=== PATIENT | female | born 1970 | race Caucasian/White ===

== ENCOUNTER 2021-05-07 10:05 | Day surgery (SDC) | payer BC, SELFPAY ==
[~2021-05-07] VITALS: Ht 167.6 cm; Wt 86.2 kg
[~2021-05-07 10:05] MED LIST: CEFAZOLIN SOD 1 GM in D5W 50 ML IV ONE
[2021-05-07 11:00] LABS: HCG,QUAL RESULT NEGATIVE (NEGATIVE)
[2021-05-07] MEDS ORDERED: LIDOCAINE 1% 10 MG/ML, 20 ML MDV ONE (12:00)
[2021-05-07] MEDS ORDERED: DESFLURANE 15 MIN GAS INH ONE (12:00)
[2021-05-07] MEDS ORDERED: PROPOFOL 200MG/ 20ML VIAL (DIPRIVAN) IV ONE (12:00)
[2021-05-07] MEDS ORDERED: ceFAZolin SODIUM 1 GM VIAL ONE (12:00)
[2021-05-07] MEDS ORDERED: ROCURONIUM BROMIDE 10 MG/ML (ZEMURON) ONE (12:00)
[2021-05-07] MEDS ORDERED: LR 1,000 ML IV.SOLN IV ONE (12:00)
[2021-05-07] MEDS ORDERED: MIDAZOLAM HCL 2 MG/2 ML VIAL (VERSED) ONE (12:00)
[2021-05-07] MEDS ORDERED: METOPROLOL TARTRATE 5 MG/5 ML AMPUL ONE (12:00)
[2021-05-07] MEDS ORDERED: SUGAMMADEX SODIUM 200 MG/2 ML VIAL IV ONE (12:00)
[2021-05-07] MEDS ORDERED: ONDANSETRON HCL 4 MG/2 ML VIAL ONE ×2 (12:00→14:21)
[2021-05-07] MEDS ORDERED: NS IRRIG SOLN 1000 ML IR ONE (12:00)
[2021-05-07] MEDS ORDERED: KETOROLAC TROMETHAMINE 30 MG VIAL ONE (12:00)
[2021-05-07] MEDS ORDERED: DEXAMETHASONE SOD PHOSPHATE 4 MG/ML VIAL ONE (12:00)
[2021-05-07] MEDS ORDERED: fentaNYL CITRATE 250 MCG/5 ML AMP ONE (12:00)
[2021-05-07] MEDS ORDERED: ACETAMINOPHEN I.V. 1000 MG 100 ML IV ONE (12:21)
[2021-05-07] MEDS ORDERED: LABETALOL 100 MG/ 20ML VIAL IVP PRN (12:30)
[2021-05-07] MEDS ORDERED: MEPERIDINE HCL/PF 25 MG/ML DISP.SYRIN IVP PRN (12:30)
[2021-05-07] MEDS ORDERED: MIDAZOLAM HCL 2 MG/2 ML VIAL (VERSED) IVP PRN (12:30)
[2021-05-07] MEDS ORDERED: METOCLOPRAMIDE HCL 10 MG/2 ML VIAL IVP PRN (12:30)
[2021-05-07] MEDS ORDERED: hydrALAZINE HCL 20 MG/ML VIAL IVP PRN (12:30)
[2021-05-07] MEDS ORDERED: HYDROmorphone 1 MG/ML INJ. CARTRIDGE IVP PRN ×2 (12:30→13:15)
[2021-05-07] MEDS ORDERED: LR 1,000 ML IV SCH (12:30)
[2021-05-07] MEDS ORDERED: ONDANSETRON HCL 4 MG/2 ML VIAL IVP PRN (12:30)
[2021-05-07] MEDS ORDERED: HYDROcodone/ACETAMIN 5-325 MG TAB (NORCO/ VICODIN) PO PRN ×2 (13:15)
[2021-05-07] MEDS ORDERED: D5/0.45 NS 1,000 ML IV SCH (13:15)
[2021-05-07] MEDS ORDERED: HYDROmorphone 1 MG/ML INJ. CARTRIDGE ONE (13:22)
[2021-05-07] MEDS: HYDROmorphone 1 MG/ML INJ. CARTRIDGE IVP PRN ×2 (13:23→13:39)
[2021-05-07 15:36] VITALS: BP_SYST 114
== END 2021-05-07 16:15 | disposition home or self-care (01) ==
LOC: SDS 10:05 → SMU 10:07 → SDS 16:15
PROVIDERS: ATTEND Colon & Rectal Surgery
DX: K80.10 Calculus of gallbladder with chronic cholecystitis without obstruction (principal); J30.9 Allergic rhinitis, unspecified; Z79.899 Other long term (current) drug therapy
CPT/HCPCS: 36415 ×2; 47563; 74300; 84703; 87426 ×2; 88304; C1727; C1758; J0131; J0690; J1100; J1170; J1885; J2001; J2405; J2704; J3010; J3465; J3490 ×2; J7060; J7120; Q9967; 76000